=== PATIENT | male | born 1985 | race Two or more races ===

== ENCOUNTER 2017-10-16 09:14 | Emergency (ER) | payer SELFPAY ==
[~2017-10-16] VITALS: Ht 170.2 cm; Wt 74.8 kg
--- NOTE | 2017-10-16 10:28 | Emergency Room Report ---
History of Present Illness General Chief Complaint: Pain Source: Patient Present Illness HPI 31yo M presents with left wrist pain and hand swelling for the past 3 days, after he reports he was lifting a 200 lb rock and it fell on his L wrist. He reports he has not seen anyone for this, and it hurts to him move his hand at all including his fingers. He did not have any skin breaks or bleeding, and he is not sure if he feels weak or it just hurts a lot to move anything, he does report some mild low back pain but reports he did not injure his back otherwise. The rock landed on his left forearm/wrist, not his back or onto his hand. Allergies: Coded Allergies: No Known Allergies (Unverified , 10/16/17) Patient History Past Medical History: see triage record Reviewed Nursing Documentation: PMH: Agreed; PSxH: Agreed Nursing Documentation-PMH Past Medical History: No Stated History Review of Systems All Other Systems: negative except mentioned in HPI Physical Exam Vital Signs Date Time Temp Pulse Resp B/P (MAP) Pulse Ox O2 Delivery O2 Flow Rate FiO2 10/16/17 09:23 98.2 87 20 151/98 96 Room Air 98.2 Sp02 EP Interpretation: reviewed, normal General Appearance: no apparent distress, alert, non-toxic Head: normocephalic Eyes: bilateral eye normal inspection, bilateral eye PERRL, bilateral eye EOMI ENT: normal ENT inspection, hearing grossly normal, normal pharynx, no angioedema, normal voice, moist mucus membranes Neck: normal inspection, full range of motion, supple, no bony tend, supple/ symm/no masses Respiratory: chest non-tender, lungs clear, normal breath sounds, chest symmetrical, palpation of chest normal Cardiovascular #1: normal peripheral pulses, regular rate, rhythm Cardiovascular #2: 2+ radial (R), 2+ radial (L) Gastrointestinal: normal inspection, non tender, soft, no mass, no guarding, no rebound Rectal: deferred Genitourinary: normal inspection, no CVA tenderness Musculoskeletal: back normal, gait/station normal, swelling, tender - L wrist with deformity and tenderness, mild ecchymosis over dorsum; no bony carpal bone or hand/digit tenderness, but +edema, and pain with ROM including flexion/ extension wrist and all digits; 2+radial pulse, no skin breaks, sens intact to touch over radial, median, ulnar nerve distribution Neurologic: alert, responsive, [employer] III-XII nml as tested, motor strength/tone normal, sensory intact, speech normal Psychiatric: judgement/insight normal, memory normal, mood/affect normal, no suicidal/homicidal ideation Skin: normal color, no rash, warm/dry, normal turgor Lymphatic: no adenopathy Medical Decision Making Diagnostic Impression: Primary Impression: Contusion Additional Impression: Hematoma ER Course Patient is 3 days out from a fracture, but the fracture is closed, and is difficult to perform a neurologic examination on the hand distally due to pain limited range of motion testing. He does have sensation intact and he has a 2+ radial pulse, and the deformity is not very severe, however I do think he needs orthopedic follow-up to ensure no contracture develops. His forearm compartments are soft, I do not suspect a compartment syndrome. Other X-Ray Diagnostic Results Other X-Ray Diagnostic Results #1: X-Ray ordered: L wrist # of Views/Limited Vs Complete: Complete Indication: Pain EP Interpretation: Yes Interpretation: no dislocation, no fractures, other - +soft tissue swelling Impression: Other - soft tissue swelling Electronically Signed by: Panchito Gomez MD Other X-Ray Diagnostic Results #2: X-Ray ordered: L forearm # of Views/Limited Vs Complete: 2 View Indication: Pain EP Interpretation: Yes Interpretation: no dislocation, no fractures, other - soft tissue swelling Impression: Other - soft tissue swelling Electronically Signed by: Panchito Gomez MD CT/MRI/US Diagnostic Results CT/MRI/US Diagnostic Results : Imaging Test Ordered: duplex LUE Impression +hematoma, but no DVT Reevaluation Time: 12:11 Last Vital Signs Date Time Temp Pulse Resp B/P (MAP) Pulse Ox O2 Delivery O2 Flow Rate FiO2 10/16/17 09:45 98.2 10/16/17 09:23 87 20 151/98 96 Room Air Status: improved Reevaluation Impression Patient stable for dc, given info on hematoma, instruction to elevate arm, analgesics, f/u with ortho Disposition: HOME, SELF-CARE Condition: Stable Referrals: NOT CHOSEN GRETCHEN/,REFERRING (PCP) PANCHITO GOMEZ M.D Oct 16, 2017 10:28
[2017-10-16] MEDS ORDERED: Cyclobenzaprine 10mg Tab ORAL ONE (11:15)
--- NOTE | 2017-10-16 11:22 | Diagnostic Imaging Report ---
Indications: Pain, trauma Technique: Two views of the left forearm Comparison: None Findings: No acute fractures. No dislocations. No radiopaque foreign body Impression: Negative
--- NOTE | 2017-10-16 11:34 | Diagnostic Imaging Report ---
Clinical Indication:Reason For Exam: PAIN Technique: 3 views of the left wrist Comparison: None Findings: No acute fractures. No dislocations. The joint spaces are preserved Impression: Negative
[2017-10-16] MEDS ORDERED: CYCLOBENZAPRINE10 MG ORAL (12:13)
[2017-10-16] MEDS ORDERED: IBUPROFEN600 MG ORAL (12:13)
[2017-10-16 12:37] VITALS: BP 151/98
== END 2017-10-16 12:39 | disposition home or self-care (01) ==
LOC: EMR 09:47
DX: S60.212A Contusion of left wrist, initial encounter (principal); W18.39XA Other fall on same level, initial encounter; Y92.9 Unspecified place or not applicable; M21.832 Other specified acquired deformities of left forearm
CPT/HCPCS: 93971; 99284